=== PATIENT | male | born 1985 | race African-American/Black ===

== ENCOUNTER 2018-02-10 08:28 | Emergency (ER) | payer BC, OTHER ==
[2018-02-10 08:32] VITALS: BP 132/92
--- NOTE | 2018-02-10 10:38 | ER Document Report ---
ED General Pain - General Chief Complaint: Low Back Pain Stated Complaint: BACK/LEG PAIN Time Seen by Provider: 02/10/18 09:13 TRAVEL OUTSIDE OF THE [place] IN LAST 30 DAYS: No - HPI Notes: 32-year-old male presents to the ER complaining some low back pain and leg pain. He describes as some cramping pain in his low back sometimes it will spread to both bilateral legs. He denies any groin numbness or tingling. Denies saddle paresthesias denies any weakness in his legs. Denies any difficulty urinating no hematuria no dysuria. No chest pain or shortness of breath. Describes the pain as moderate is worse with movement. Tried heating pads at home with no relief. - Related Data Allergies/Adverse Reactions: No Known Allergies Allergy (Verified 09/08/13 00:00) Past Medical History - Social History Smoking Status: Never Smoker Chew tobacco use (# tins/day): No Frequency of alcohol use: None Drug Abuse: None Family History: CAD, Hyperlipidemia, Hypertension Patient has suicidal ideation: No Patient has homicidal ideation: No - Past Medical History Cardiac Medical History: Reports: Hx Hypertension Renal/ Medical History: Reports: Hx Epididymitis. Denies: Hx Peritoneal Dialysis Musculoskeletal Medical History: Reports Hx Musculoskeletal Deformity Skin Medical History: Reports Hx Cellulitis - Immunizations Immunizations up to date: Yes Hx Diphtheria, Pertussis, Tetanus Vaccination: Yes Review of Systems - Review of Systems Constitutional: denies: Chills, Fever Gastrointestinal: denies: Abdominal pain, Diarrhea, Nausea, Vomiting Genitourinary: denies: Dysuria, Flank pain, Hematuria, Urgency Musculoskeletal: Back pain, Muscle pain, Muscle stiffness Neurological/Psychological: denies: Headaches -: Yes All other systems reviewed and negative Physical Exam - Vital signs Vitals: Temp Pulse Resp BP Pulse Ox 98.1 F 58 L 16 132/92 H 98 02/10/18 08:31 02/10/18 08:31 02/10/18 08:31 02/10/18 08:31 02/10/18 08:31 - Notes Notes: GENERAL_APPEARANCE: well_nourished, alert, cooperative, no_acute_distress, no_ obvious_discomfort. VITALS: reviewed, see vital signs table. HEAD: no_swelling\tenderness on the head. EYES: PERRL, EOMI, conjunctiva_clear. NOSE: no_nasal_discharge. MOUTH: (-)decreased moisture. THROAT: no_throat_inflammation, no_airway_obstruction. no_lymphadenopathy NECK: supple, no_neck_tenderness, (-)thyromegaly. BACK: Paraspinal discomfort from about L3 all the way down to the buttock. Central vertebral tenderness noted CHEST_WALL: no_chest_tenderness. LUNGS: no_wheezing, no_rales, no_rhonchi, (-)accessory muscle use, good air exchange bilateral. HEART: normal_rate, normal_rhythm, normal_S1, normal_S2, (-)S3, (-)S4, no_ murmur, no_rub. ABDOMEN: normal_BS, soft, no_abd_tenderness, (-)guarding, (-)rebound, no_ organomegaly, no_abd_masses. EXTREMITIES: strength 5/5 in all_extremities, good pulses in all_extremities, patient complains some mild discomfort on the right hamstring., no_edema. SKIN: warm, dry, good_color, no_rash. MENTAL_STATUS: speech_clear, oriented_X_3, normal_affect, responds_ appropriately to questions. NEURO: Neg Motor or Sensory Deficits on exam, CN 2-12 intact, DTR 2+ symmetric x 4, No cerbellar signs Course - Re-evaluation Re-evalutation: 02/10/18 10:35 The patient has no saddle paresthesias no foot drop. No motor weakness. His discomfort seems to be very musculoskeletal and muscular along the erector spinae muscles about lumbar extending downward to the buttock and gluteus shital himself and into the right hamstring. There is no neuro deficits. There is bilateral patellar reflexes 2+ symmetric. No numbness no tingling. There is no foot drop. My suspicion for cauda equina syndrome is low. I spoke with the patient about stretching. Will place him on NSAIDs and Flexeril. I will have him do a good stretching routine follow-up with his family doctor for further care. - Vital Signs Vital signs: Temp Pulse Resp BP Pulse Ox 98.1 F 58 L 16 132/92 H 98 02/10/18 08:31 02/10/18 08:31 02/10/18 08:31 02/10/18 08:31 02/10/18 08:31 Discharge - Discharge Clinical Impression: Back pain Qualifiers: Back pain location: low back pain Chronicity: acute Back pain laterality: bilateral Sciatica presence: without sciatica Qualified Code(s): M54.5 - Low back pain Condition: Good Disposition: HOME, SELF-CARE Instructions: Low Back Pain ([facility]) Additional Instructions: Do stretching exercises for your back and legs of we have discussed follow-up with the family doctor for further care Prescriptions: Cyclobenzaprine HCl [Flexeril 10 mg Tablet] 10 mg PO TID PRN #30 tablet PRN Reason: back pain and muscle tightness Ibuprofen [Motrin 800 mg Tablet] 800 mg PO Q8H PRN #30 tab PRN Reason: Pain
== END 2018-02-10 11:16 | disposition home or self-care (01) ==
LOC: ER 08:28
DX: M54.5 Low back pain (principal); M79.604 Pain in right leg; M79.605 Pain in left leg; I10 Essential (primary) hypertension
CPT/HCPCS: 99283

== ENCOUNTER 2018-10-12 02:31 | Emergency (ER) | payer BC ==
[2018-10-12 02:38] VITALS: BP 142/72
[2018-10-12] MEDS ORDERED: DEXAMETHASONE 4 MG TABLET PO ONE (03:50)
--- NOTE | 2018-10-12 03:57 | ER Document Report ---
ED General - General Chief Complaint: Cough Stated Complaint: DIFFICULTY BREATHING,SORE THROAT Time Seen by Provider: 10/12/18 03:39 Notes: Patient is a 33-year-old male without chronic medical problems, not a tobacco smoker, presents with approximately 1 week of sore throat, nasal congestion, sneezing, coughing and sinus pressure. States that his symptoms started gradually, got progressively worse since onset. Has tried cetirizine with m inimal relief. Symptoms are described as moderate to severe, constant, unchanging since onset. Nothing seems to worsen his symptoms. Uncertain whether or not he has had similar symptoms in the past. He has not seen his primary care doctor regarding today's concerns. States it is difficult for him to breathe through his nose but denies shortness of breath itself. No chest pain. No fever or constitutional symptoms. TRAVEL OUTSIDE OF THE [place] IN LAST 30 DAYS: No - Related Data Allergies/Adverse Reactions: No Known Allergies Allergy (Verified 10/12/18 02:34) Past Medical History - General Information source: Patient - Social History Smoking Status: Never Smoker Frequency of alcohol use: None Drug Abuse: None Lives with: Family Family History: CAD, Hyperlipidemia, Hypertension - Past Medical History Cardiac Medical History: Reports: Hx Hypertension Renal/ Medical History: Reports: Hx Epididymitis. Denies: Hx Peritoneal Dialysis Musculoskeletal Medical History: Reports Hx Musculoskeletal Deformity Skin Medical History: Reports Hx Cellulitis - Immunizations Immunizations up to date: Yes Hx Diphtheria, Pertussis, Tetanus Vaccination: Yes Review of Systems - Review of Systems Notes: Constitutional: Negative for fever. HENT: Positive for sore throat and lymphadenopathy, positive for nasal congestion Eyes: Negative for visual changes. Cardiovascular: Negative for chest pain. Respiratory: Negative for shortness of breath. Gastrointestinal: Negative for abdominal pain, vomiting or diarrhea. Genitourinary: Negative for dysuria. Musculoskeletal: Negative for back pain. Skin: Negative for rash. Neurological: Negative for headaches, weakness or numbness. 10 point ROS negative except as marked above and in HPI. Physical Exam - Vital signs Vitals: Temp Pulse Resp BP Pulse Ox 98.1 F 63 16 142/72 H 95 10/12/18 02:36 10/12/18 02:36 10/12/18 02:36 10/12/18 02:36 10/12/18 02:36 Interpretation: Hypertensive Notes: PHYSICAL EXAMINATION: GENERAL: Well-appearing, well-nourished and in no acute distress. HEAD: Atraumatic, normocephalic. EYES: Pupils equal round and reactive to light, extraocular movements intact, sclera anicteric, conjunctiva are normal. ENT: nares patent with hypertrophy of the nasal turbinates bilaterally, oropharynx clear without exudates. Moist mucous membranes. NECK: Normal range of motion, bilateral anterior cervical lymphadenopathy LUNGS: Breath sounds clear to auscultation bilaterally and equal. No wheezes rales or rhonchi. HEART: Regular rate and rhythm without murmurs ABDOMEN: Soft, nontender, normoactive bowel sounds. No guarding, no rebound. No masses appreciated. EXTREMITIES: Normal range of motion, no pitting or edema. No cyanosis. NEUROLOGICAL: No focal neurological deficits. Moves all extremities spontaneously and on command. PSYCH: Normal mood, normal affect. SKIN: Warm, Dry, normal turgor, no rashes or lesions noted. Course - Re-evaluation Re-evalutation: 10/12/18 03:53 Presentation is most consistent with a viral upper respiratory infection versus an allergic presentation. Patient is overall well appearance, vitals within normal limits, well-hydrated. Patient denies any headache, neck pain, and has no evidence of meningismus on examination. Lungs are clear bilaterally. No evidence of respiratory distress. Based on clinical exam and history, I do not suspect an acute pneumonia, meningitis, strep pharyngitis, or an acute encephalitis. No laboratory or imaging testing is indicated at this time. At this time will discharge with return precautions and follow-up recommendations. Verbal discharge instructions given a the bedside and opportunity for questions given. Medication warnings reviewed. Patient is in agreement with this plan and has verbalized understanding of return precautions and the need for primary care follow-up in the next 24-72 hours. - Vital Signs Vital signs: Temp Pulse Resp BP Pulse Ox 98.1 F 63 16 142/72 H 95 10/12/18 02:36 10/12/18 02:36 10/12/18 02:36 10/12/18 02:36 10/12/18 02:36 Discharge - Discharge Clinical Impression: Sore throat, Viral upper respiratory infection, Sinus pressure Condition: Good Disposition: HOME, SELF-CARE Additional Instructions: Your symptoms are most likely due to a viral infection versus allergies. For nasal congestion: Purchase Flonase [id number] and use twice daily. Continue taking cetirizine 10 mg up to 3 times daily. You may also use tylenol or ibuprofen as needed for aches and thorat discomfort. Please be sure to drink plenty of fluids and get rest. Return to the emergency department you being having difficulty breathing, chest pain, persistent vomiting, or any other symptoms that are concerning to you.
== END 2018-10-12 04:10 | disposition home or self-care (01) ==
LOC: ER 02:31
DX: J06.9 Acute upper respiratory infection, unspecified (principal); B97.89 Other viral agents as the cause of diseases classified elsewhere; J02.9 Acute pharyngitis, unspecified; R51 Headache; R59.1 Generalized enlarged lymph nodes; R05 Cough; R09.81 Nasal congestion; R06.7 Sneezing; I10 Essential (primary) hypertension
CPT/HCPCS: 99283